=== PATIENT | female | born 1995 | race Caucasian/White ===

== ENCOUNTER 2016-08-20 08:40 | Inpatient (IN) | payer OTHER ==
[~2016-08-20] VITALS: Ht 165.1 cm; Wt 127.9 kg
[2016-08-20] MEDS ORDERED: Lactated Ringer's 1,000 ML IV PRN (09:27)
[2016-08-20] MEDS ORDERED: Penicillin G K Inj 5,000,000 UNITS in Dextrose 5% Minibag Plus 100 ML IV ONE (09:30)
[2016-08-20] MEDS ORDERED: Oxytocin 30 Units/500 mL LR 30 UNITS in IV Premix 1 EACH IV PRN (09:30)
[2016-08-20] MEDS ORDERED: Carboprost 250 mCg/mL Inj IM PRN (09:30)
[2016-08-20] MEDS ORDERED: fentaNYL-PF 50 mCg/mL 2 mL Inj IVPUSH PRN (09:30)
[2016-08-20] MEDS ORDERED: Hemorrhage Kit, Post Partum XX ONE (09:30)
[2016-08-20] MEDS ORDERED: Sodium Chloride LOK Flush 10 mL Syringe IVFLUSH PRN (09:30)
[2016-08-20] MEDS ORDERED: Oxytocin 10 Unit/mL Inj IM PRN (09:30)
[2016-08-20] MEDS ORDERED: Methylergonovine 0.2 mg/mL Inj IM PRN (09:30)
[2016-08-20 10:52] LABS: Mean Corpuscular Hemoglobin 29.1 pg (27.0-35.0)
[2016-08-20] MEDS ORDERED: PREN-12 PO (11:06)
[2016-08-20] MEDS: Penicillin G K Inj 3,000,000 UNITS in IV Premix 1 EACH IV SCH ×3 (17:27→23:15)
[2016-08-20] MEDS ORDERED: OXYTOCIN IV PRN (17:50)
[2016-08-20] MEDS ORDERED: LACTATED RINGER S IV PRN (17:50)
[2016-08-20] MEDS ORDERED: Oxytocin 30 Units/500 mL LR Premix IV SCH (17:50)
[2016-08-20] MEDS ORDERED: Lactated Ringer's 500 ML IV ONE (19:12)
--- NOTE | 2016-08-20 19:14 | PCM.HPANE ---
Patient Data Date of Service: Aug 20, 2016 Surgeon Admitting Provider:Andrea Morris MD Attending Provider:Andrea Morris MD Primary Care Physician:Andrea Morris MD Other Provider:Diane Garcia Anesthesia Reason for Visit Term Early Labor TERM EARLY LABOR Ht/WT & BMI Height (Centimeters): 165 Weight (Kilograms): 128 Body Mass Index 46.9 Allergies Coded Allergies: No Known Allergies (Unverified , 08/20/16) Past Anesthesia History Anesthesia History: Denies:: Fam Anesthesia Reaction, Fam Malignant Hypertherm Diabetes History Hx Diabetes?: No Medications Hypertension Medication: No Home Meds Incl Beta Maile: No Reported Medications Vit W-Ca,Fe,FA(<1 mg) ( Formula)1 Each Tablet1 Each PO DAILY 08/20/16 History History of ENT Problems?: No Hx of Heart Problems?: No Cardiovascular History: Denies:: Irregular Heartbeat Valvular Heart Disease Hx of Respiratory Problem?: No Respiratory History: Denies:: Asthma Hx Neurologic Problems?: No Hx of GI Problems?: No Hx of Problems?: No HX of Peritoneal Dialysis: No Female Hx: Positive for:: Currently Musculoskeletal History: Denies:: Back Injury Hx Surgeries?: No Hx Diabetes: No Smoking Status: Never Smoker Stop/Bang Risk Assessment Category Category 1A: Patient has history of documented sleep apnea, and HAS NOT received any narcotic, sedative or anesthesia administration during this stay. Category 1B: Patient has history of documented sleep apnea, and HAS received any narcotic , sedative or anesthesia administration during this stay Category 2: Patient has SUSPECTED Obstructive Sleep Apnea, and HAS received any narcotic , sedative or anesthesia administration during this stay. Category 3: Patient has SUSPECTED Obstructive Sleep Apnea and HAS NOT received narcotic, sedative or anesthesia administration during this stay. Category 4: Outpatient in Procedural Areas with known sleep apnea or who screen positive for High Risk via the STOP/BANG questionnaire. Exam Exam General Appearance: Alert, Oriented X3, Cooperative, No Acute Distress HEENT/AIRWAY: MP 3 Lungs: Clear to Auscultation, Normal Air Movement Heart: Exam Unremarkable, Regular Rate/Rhythm, No Murmurs/Rubs/Gallops Meds/Labs/Diagnostics Admission Meds Current Medications Penicillin G Potassium 0484865 units/Dextrose/ Water 100 ml @ 240 mls/hr ONCE ONCE IV Last administered on 08/20/16t 10:54; Start 08/20/16 at 09:30; Stop at 09:54; Status DC Penicillin G Potassium/ Dextrose/Premix (Pfizerpen Inj/ IV Premix) 50 ml @ 100 mls/hr Q4H IV Last administered on 08/20/16 18:56; Start 08/20/16 at 13:30 Labs Test 08/20/16 10:35 White Blood Count 12.9th/mm3 (3.8-10.1) Red Blood Count 4.46mil/mm3 (3.90-5.20) Hemoglobin 13.0g/dL (12.0-15.6) Hematocrit 39.7% (35.0-46.0) Mean Corpuscular Volume 89.0fL (81-100) Mean Corpuscular Hemoglobin 29.1pg (27.0-35.0) Mean Corpuscular Hemoglobin Concent 32.7% (32.0-37.0) Red Cell Distribution Width 15.4% (12.3-15.4) Platelet Count 259bil/L (150-400) Plan Impression Patient chart reviewed, patient interviewed and anesthestic plan with risks, benefits, and alternatives discussed, and informed consent obtained. ASA Physical Status: ASA3 Severe Disease Anesthetic Plan: Epidural Bene/Risks/Altern/Consents: Yes HP Complete Prior to Induction: Yes Murray Hwang MD Aug 20, 2016 19:14
[2016-08-20] MEDS ORDERED: Atropine 1 mg/10 mL (Code) Syringe IVPUSH PRN (19:15)
[2016-08-20] MEDS ORDERED: EPHEDrine Sulfate 50 mg/mL Inj IVPUSH PRN (19:15)
[2016-08-20] MEDS ORDERED: fentaNYL 2 mCg/mL-Bupiv 0.125% 100 ML EPIDURAL SCH (19:15)
[2016-08-20] MEDS ORDERED: Phenylephrine/NS-PF 100 mCg/mL 5 mL Syringe IVPUSH PRN (19:15)
[2016-08-20] MEDS: Lactated Ringer's 1,000 ML IV SCH (21:20)
--- NOTE | 2016-08-21 00:44 | HP ---
[address] [address] HISTORY AND PHYSICAL PATIENT: IRISH LINDSAY : 1995 MR#: [id number] ADMIT: 08/20/2016 JOB ID: [id number] CHIEF COMPLAINT: Rupture of membranes. HISTORY OF PRESENT ILLNESS: A 21-year-old, 1, para 0, with an EDC of August 13, 2016, based on a nine week three day ultrasound done January 12, 2016, presents at 41 weeks gestation. She notes rupture of membranes with clear fluid at 7 a.m. this morning. She presented to the Center about an hour later, was found to be 2 cm dilated and neha some. She was observed. Initially, the contractions seemed to get stronger, but throughout the day her cervix changed only to 3 cm. Oxytocin augmentation was started at dinnertime today. I was contacted by nursing because of some heart rate decelerations with oxytocin now turned off. These did seem to resolve with positional changes. Per nursing, she is now 5 cm dilated. LABORATORIES: Blood type O-positive. Rubella immune. Serology nonreactive. Hepatitis B surface antigen and HIV tests were negative at the onset of . An A1c was 5.6. Her initial hematocrit was 36.9, with a repeat at 28 weeks of 34.8. Her 28 week glucose tolerance test with a fasting of 74, one hour 109, a two hour 120. Antibody screen was negative at the beginning of . An initial urine culture showed 10,000 to 25,000 group B strep. She declined risk testing. Pap was normal in December of last year. ISSUES: 1. GBS positive by urine culture. 2. Excess weight with a BMI of 39 at the onset of . 3. Bilateral mild renal pelviectasis on ultrasound on March 27. ALLERGIES: None known. CURRENT MEDICATIONS: 1. vitamins 1 tablet daily. 2. Iron 325 mg daily. SOCIAL HISTORY: She is a nonsmoker, drinks no alcohol. Has a long-term relationship with a male partner. Has previously denied recreational drug use. PAST GYNECOLOGIC HISTORY: 1, para 0. PHYSICAL EXAMINATION: Vitals at 23:41 show a pulse of 100, blood pressure 119/65, last recorded temperature at 20:47 was 37.1. She is an alert, overnourished, gravid woman, more comfortable since receiving her epidural. Cervical examination shows the fetus to be in vertex position. Her cervix is 5 cm, 90% effaced, -2 station. Scant bloody show is noted on the glove. heart tracing shows a baseline in the 130s to 140s with decelerations, inconsistent, mostly as low as the high 90s, one down to 70 lasting approximately 60 seconds. Some of these do not appear related to contractions, some of them are more consistent with a late deceleration. There is continued good variability. Tocometer shows somewhat difficult to assess, but in a moderate to a slightly regular contraction pattern every 3-4 minutes. With discontinuing oxytocin and position changes, the heart rate decelerations seemed to resolve. Pitocin was also turned off shortly before my arrival. ASSESSMENT: 1. Gravid at 41 weeks gestation. 2. Group B strep positive. Patient has already received more than two doses of penicillin. 3. Mild bilateral renal pelviectasis noted incidentally on ultrasound. 4. Mild anemia in , treated with iron. 5. Spontaneous rupture of membranes with early but slow to progress labor. After observing for about 10 hours, she was augmented with oxytocin. 6. heart rate decelerations with some potentially representing late decelerations, which improve with position changes. There is still good variability of the heart tracing. 7. Excess weight. PLAN: Oxytocin was turned off. Internal monitors were placed for better assessment of the contraction pattern and heart rate tracing, the latter now appears to be more in a sleep pattern with intact but somewhat reduced variability, baseline in the 120s. Dr. Haas was contacted around dinnertime today when I did start the oxytocin. Will observe for a period of time off this and if continued reassuring tracing restart at half of our prior dosing and increase per protocol. Continue penicillin per protocol. Consider outpatient post delivery / ultrasound to followup renal pelviectasis finding. Patient updated at bedside. Questions answered. GISELE
--- NOTE | 2016-08-21 01:46 | PROG NOTE ---
[address] [address] PROGRESS NOTE PATIENT: IRISH LINDSAY : 1995 MR#: [id number] ADMIT: 08/20/2016 JOB ID: [id number] DATE: 08/21/2016 LABOR PROGRESS NOTE: I was contacted because of heart rate decelerations. This was after oxytocin was restarted shortly after midnight, deceleration started at about 40-45 minutes after the hour to as low as the 70s with recovery. Intradeceleration variability remained good with a baseline in the 130s-150s and accelerations. PHYSICAL EXAMINATION: Vitals: Blood pressure 123/59, pulse 115. Cervical examination performed by myself shows her to be 90% effaced, -1 station, 60% effaced, vertex position. heart tracing is reviewed and summarized above. With cessation of oxytocin, tracing returns to baseline of 130s-140s with excels. There is one brief deceleration with the contraction. Tocometer shows regular contractions every 2-3 minutes. ASSESSMENT: 1. Gravid at 41-1/7 weeks. 2. Group-B Strep positive, now fully treated. 3. Rupture of membranes, now approximately 19 hours ruptured. 4. heart rate decelerations with oxytocin. PLAN: Oxytocin discontinued. Position changes performed and oxygen applied. Case discussed with Dr. Haas in on-call for PROCESSING SUPERVISOR. Reviewed the difficulty of wanting the patient to progress but having issues when oxytocin restarted. Given that this is the 1st baby, she still probably has at least several hours until being ready to push. We discussed simply discontinuing oxytocin and seeing if she continues to labor on her own given the improvement in heart rate. The plan is to pursue this for 2-3 hours, then recheck the patient. If she makes progress, this might be our future plan. If she makes no progress, option would be either to proceed with or to retry oxytocin and, if heart rate decelerations again, discontinue with plan for . Obviously, deterioration in heart rate tracing would result in additional intervention. The patient is updated, questions answered.
[2016-08-21] MEDS ORDERED: Acetaminophen IV 1,000 MG in IV Premix 1 EACH IV ONE (02:15)
[2016-08-21] MEDS: Penicillin G K Inj 3,000,000 UNITS in IV Premix 1 EACH IV SCH (03:13)
[2016-08-21] MEDS ORDERED: Ondansetron 2 mg/mL 2 mL Inj ONE (03:52)
[2016-08-21] MEDS: Lactated Ringer's 1,000 ML IV SCH ×2 (03:57→09:39)
[2016-08-21] MEDS ORDERED: Ondansetron 2 mg/mL 2 mL Inj IVPUSH PRN (04:00)
[2016-08-21] MEDS ORDERED: Penicillin G K 3,000,000 Units/50 mL D5W Premix IV ONE (07:23)
[2016-08-21] MEDS ORDERED: Penicillin G K Inj 3,000,000 UNITS in IV Premix 1 EACH IV SCH (07:30)
[2016-08-21] MEDS ORDERED: Lactated Ringer's 1,000 ML IV SCH (10:33)
[2016-08-21] MEDS ORDERED: Methylergonovine 0.2 mg/mL Inj IM PRN (10:35)
[2016-08-21] MEDS ORDERED: Oxytocin 10 Unit/mL Inj IM PRN (10:35)
[2016-08-21] MEDS ORDERED: oxyCODONE-Acetamin 5-325 mg Tablet PO PRN (10:35)
[2016-08-21] MEDS ORDERED: Carboprost 250 mCg/mL Inj IM PRN (10:35)
[2016-08-21] MEDS ORDERED: Hemorrhage Kit, Post Partum XX ONE (10:35)
[2016-08-21] MEDS ORDERED: Oxytocin 30 Units/500 mL LR 30 UNITS in IV Premix 1 EACH IV PRN (10:35)
[2016-08-21] MEDS ORDERED: LANOlin HPA 7 Gm Ointment TOPICAL PRN (10:35)
[2016-08-21] MEDS ORDERED: Benzocaine (Dermoplast) 20% 60 Gm Spray TOPICAL PRN (10:35)
--- NOTE | 2016-08-21 11:01 | PROG NOTE ---
[address] [address] PROGRESS NOTE PATIENT: IRISH LINDSAY : 1995 MR#: [id number] ADMIT: 08/20/2016 JOB ID: [id number] DELIVERY NOTE: DATE: 08/21/2016 DELIVERY POSITION: CANDIDA. DELIVERY WEIGHT: 3751 grams (8 pounds, 4 ounces) APGARS: 9 and 9. UMBILICAL CORD: Nuchal cord x1. Normal length and appearance. Three-vessel cord. PLACENTA: Central cord insertion normal appearance, no evidence of retained fragments. ESTIMATED BLOOD LOSS: 350-400 cc. LACERATIONS: Second-degree perineal and bilateral shallow lower/inferior labial abrasions. ANESTHESIA: Epidural. COMPLICATIONS: 1. Nuchal cord x1. 2. Prolonged rupture of membranes greater than 24 hours. 3. GBS positive, fully treated. SUMMARY: The patient was found to be complete with an increasing urge to push and a sense of pressure. She pushed quite effectively with only a few contractions Pediatrics was contacted just before delivery and was present. Head delivered. A tight nuchal cord was identified and reduced immediately. Shoulders and body delivered without difficulty. Umbilical cord was clamped and cut after a 2 minute delay. Cord blood collected and sent. Placenta delivered spontaneously with gentle traction on the cord. IV oxytocin was then instituted at rate. Uterine bleeding seemed to slow but there was a single blood vessel around the perineum that was visibly spurting. With retraction, compression, better visualization and placement of a 2-0 suture, this ceased. Perineum was then inspected and showed a second-degree perineal tear as well as shallow/superficial bilateral inferior labial tears. The perineal was repaired with 2-0 Vicryl in standard fashion; the labial repairs with 4-0 Vicryl and subcutaneous closure. The patient is in stable condition . She plans to breast feed. She was GBS positive, but fully treated with greater than two doses of penicillin prior to delivery. [facility]
[2016-08-21] MEDS: Witch Hazel-Glycerin Pads TOPICAL PRN (12:06)
[2016-08-21] MEDS: HYDROcodone-APAP 5-325 mg Tablet PO PRN ×3 (13:58→22:42)
[2016-08-21] MEDS: Ascorbic Acid 500 mg Tablet PO SCH (18:31)
--- NOTE | 2016-08-21 19:41 | PCM.ANEP2 ---
Post Anesthesia Evaluation ASA/CMS Post Anesthesia VS in Patient's Normal Range?: Yes Resp Stable; Airway Patent?: Yes CV Function & Hydration Stable: Yes Mental Status Recovered?: Yes Pain control Satisfactory?: Yes N/V Control Satisfactory?: Yes Terry Llanos MD Aug 21, 2016 19:41
[2016-08-22] MEDS: HYDROcodone-APAP 5-325 mg Tablet PO PRN (04:30)
[2016-08-22] MEDS ORDERED: Oxytocin 30 Units/500 mL LR 30 UNITS in IV Premix 1 EACH IV PRN (05:20)
[2016-08-22] MEDS ORDERED: Lactated Ringer's 1,000 ML IV SCH (05:21)
[2016-08-22 07:19] LABS: Mean Corpuscular Hemoglobin 28.7 pg (27.0-35.0); Mean Corpuscular Volume 92.7 fL (81-100)
[2016-08-22] MEDS: Ascorbic Acid 500 mg Tablet PO SCH (08:29)
--- NOTE | 2016-08-22 12:24 | PCM.DIOB ---
Obstetrical Disch Instruction Date of Service: Aug 22, 2016 Dates of Hospitalization Date of Hospital Admission Aug 20, 2016 at 08:56 Providers Admitting Physician: Andrea Morris MD Primary Care Physician: Andrea Morris MD Attending Physician: Andrea Morris MD Discharge Diagnosis Problems: (1) Encounter for full-term uncomplicated delivery Status: Acute ICD Code: O80 (2) Prolonged rupture of membranes, greater than 24 hours, delivered Status: Acute ICD Code: O42.10 Diet Discharge Diet: No restrictions Activity Discharge Activity-General: Pelvic Rest for 6 weeks, Balance rest and activity Dressing and Incisional Care Hygiene: May shower Follow Up Plan Follow-up Provider (F9): Andrea Morris MD Follow-up appointment: Weeks (6) Call your provider for: Fever or Chills, Shortness of breath, Heavy vaginal bleeding, Excessive constipation, Red painful breasts Andrea Morris MD Aug 22, 2016 12:24
[2016-08-22] MEDS ORDERED: IBUP800T28 PO (12:25)
[2016-08-22] MEDS ORDERED: FERR-74 PO (12:25)
[2016-08-22] MEDS ORDERED: DOCU-41 PO (12:25)
[2016-08-22] MEDS ORDERED: HYDR-4003 PO (12:25)
[2016-08-22 12:40] VITALS: BP 104/63; PULSE 72; RESP 18
[2016-08-22] MEDS: Witch Hazel-Glycerin Pads TOPICAL PRN (13:54)
--- NOTE | 2016-08-22 16:30 | DIS ---
[address] [address] DISCHARGE SUMMARY PATIENT: IRISH LINDSAY : 1995 MR#: [id number] ADMIT: 08/20/2016 JOB ID: [id number] DIS: 08/22/2016 DISCHARGE DIAGNOSES: 1. Vaginal delivery at 41 and 1/7 weeks gestation to an 8 pound 4 ounce (3751 g) viable male with Apgars of 9 and 9. 2. Nuchal cord x1. 3. Prolonged rupture of membranes in a GBS positive patient, fully treated and no evidence of chorioamnionitis. 4. Nuchal cord x1. 5. Excess weight. 6. Bilateral mild renal pelviectasis noted on an ultrasound in March of 2016. 7. anemia related to blood loss in delivery. DISCHARGE MEDICATIONS: 1. vitamins 1 tablet daily. 2. Ibuprofen 800 mg q.6 hours p.r.n. pain. 3. Vicodin 5/325 mg 1-2 tablets q.4 hours p.r.n. pain, #10, no refills. 4. Docusate sodium 100 mg p.o. b.i.d. while taking narcotics. DISCHARGE INSTRUCTIONS: 1. Activity ad vinh. 2. Diet ad vinh. 3. Breast feed ad vinh. 4. Call for increased bleeding, fevers, breast pain or tenderness, excess constipation or other problems. 5. Followup with Dr. Morris in six weeks. HOSPITAL COURSE: The patient is a 21-year-old, now 1, para 1, who presented at 41 weeks gestation with rupture of membranes at 2 cm dilated. She had occasional contractions but was not entering very active labor. Oxytocin augmentation was added with gradual cervical change. However, there were heart rate decelerations that necessitated stopping it on two different occasions. Oxytocin was restarted in the wardrobe technician hours of August 21 and the patient went on to become completely dilated pushing for only 10-15 minutes delivering a viable 8 pound 4 ounce male. She sustained a second-degree perineal laceration. her hematocrit is 29.1, down from an admit of 39.7. She reports her lochia is slowing. She is breast-feeding without difficulty and her pain is well controlled. She will be discharged on iron for six weeks with followup in my office at that time, sooner if problems. She has excellent social support. She plans to breast feed. Given the 's fully treated GBS exposure, I did not feel 48 hour observation was needed. Will discuss possible outpatient / renal ultrasound for followup of the incidental pelviectasis finding.
== END 2016-08-22 14:06 | disposition home or self-care (01) | DRG 775 ==
LOC: FBCO 08:40 → FBC 08:56
PROVIDERS: ADMIT Family Medicine; ATTEND Family Medicine
PROC: 10E0XZZ Delivery of Products of Conception, External Approach (ICD-10-PCS; principal; 2016-08-21)
PROC: 0KQM0ZZ Repair Perineum Muscle, Open Approach (ICD-10-PCS; 2016-08-21)
DX: O48.0 Post-term pregnancy (principal); Z68.42 Body mass index [BMI] 45.0-49.9, adult; D62 Acute posthemorrhagic anemia; Z3A.41 41 weeks gestation of pregnancy; Z37.0 Single live birth; O70.1 Second degree perineal laceration during delivery; O69.81X0 Labor and delivery complicated by cord around neck, without compression, not applicable or unspecified; O99.824 Streptococcus B carrier state complicating childbirth; O42.12 Full-term premature rupture of membranes, onset of labor more than 24 hours following rupture; O76 Abnormality in fetal heart rate and rhythm complicating labor and delivery; O99.214 Obesity complicating childbirth; E66.9 Obesity, unspecified; O90.81 Anemia of the puerperium